=== PATIENT | male | born 1990 | race Two or more races ===

== ENCOUNTER 2017-06-14 22:21 | Emergency (ER) | payer MEDICAID ==
[~2017-06-14] VITALS: Ht 170.2 cm; Wt 58.5 kg
[2017-06-14 22:27] VITALS: BP_SYST 135
--- NOTE | 2017-06-14 22:41 | NUR ---
Patient to ER bed 4 to gown for evaluation. Side rails up. Report given to Lissy QUIROZ.
--- NOTE | 2017-06-14 22:42 | NUR ---
Patient AOx4, ambulatory, presents to ER with complaint of vomiting x3 today. Patient states he noted blood in his vomit, fever, generalized pain, and weakness. No other symptoms or complaints at this time. Patient states no changes in diet.
[2017-06-14] MEDS ORDERED: NACL 0.9% 1,000 ML IV ONE (22:43)
--- NOTE | 2017-06-14 22:43 | NUR ---
ER MD [place] at bedside for medical evaluation.
[2017-06-14] MEDS ORDERED: ONDANSETRON HCL 4 MG/2 ML VIAL IVP ONE (22:45)
[2017-06-14] MEDS ORDERED: KETOROLAC TROMETHAMINE 30 MG VIAL IVP ONE (22:45)
--- NOTE | 2017-06-14 22:50 | NUR ---
# 20 gauge angiocath placed to LFA. Use of asceptic technique. Opsite placed over site. Blood return noted. Blood for lab drawn from site. Flushed with 10 cc of normal saline. No evidence of infiltration noted. Patient tolerated well.
[2017-06-14 23:13] LABS: BASOPHILS # (AUTO) 0.1 K/uL (0.0-0.2); EOSINOPHILS # (AUTO) 0.1 K/uL (0.0-0.4); EOSINOPHILS % (AUTO) 3.6 % (0.0-4.0); HEMATOCRIT 46.1 % (36-54); HEMOGLOBIN 15.3 g/dL (14.0-18.0); LYMPHOCYTES # (AUTO) 0.7 K/uL (1.0-5.5); LYMPHOCYTES % (AUTO) 15.8 % (20.5-51.5); MEAN CORPUSCULAR HEMOGLOBIN 30 pg (27-31); MEAN CORPUSCULAR HGB CONC 33 % (32-36); MEAN CORPUSCULAR VOLUME 91 fL (79.0-98.0); MONOCYTES # (AUTO) 0.4 K/uL (0.0-1.0); MONOCYTES % (AUTO) 8.9 % (1.7-9.3); NEUTROPHILS # (AUTO) 2.9 K/uL (1.8-7.7); NEUTROPHILS % (AUTO) 69.7 % (40.0-70.0); PLATELET COUNT (AUTO) 139 K/uL (130-430); RED BLOOD CELL COUNT(AUTO) 5.09 MIL/uL (4.2-6.2); RED CELL DISTRIBUTION WIDTH 11.6 % (9.0-15.0); WHITE BLOOD COUNT (AUTO) 4.2 K/uL (4.8-10.8)
[2017-06-14 23:26] LABS: CALCIUM 9.4 mg/dL (8.4-11.0); CREATININE 0.87 mg/dL (0.55-1.30); POTASSIUM 3.7 mmol/L (3.5-5.1)
--- NOTE | 2017-06-14 23:30 | NUR ---
No adverse reactions noted after medication administration. Will continue to monitor.
[2017-06-14 23:31] LABS: ALBUMIN 4.5 g/dL (3.4-4.8); TOTAL BILIRUBIN 0.6 mg/dL (0.0-1.0)
[2017-06-15] MEDS ORDERED: ACETAMINOPHEN 325 MG TABLET ONE (00:40)
[2017-06-15] MEDS ORDERED: ACETAMINOPHEN 500 MG TABLET PO ONE (00:45)
[2017-06-15 00:55] VITALS: BP_SYST 118
--- NOTE | 2017-06-15 00:55 | NUR ---
Patient given written and verbal discharge instructions and verbalizes understanding. ER MD discussed with patient the results and treatment provided. Patient in stable condition. ID arm band removed. IV catheter removed intact and dressing applied, no active bleeding. Rx of Prednisone and Zofran given. Patient educated on pain management and to follow up with PMD. Pain Scale 2/10 tolerable to patient. Opportunity for questions provided and answered.
== END 2017-06-15 00:55 | disposition home or self-care (01) ==
LOC: SED 22:21
DX: R50.9 Fever, unspecified (principal); R11.2 Nausea with vomiting, unspecified; M79.1 Myalgia
CPT/HCPCS: 36415; 71045; 80053; 83690; 85025; 86710; 96361; 96374; 96375; 99285; J1885; J2405; J7030

== ENCOUNTER 2017-07-07 08:10 | Emergency (ER) | payer MEDICAID ==
[~2017-07-07] VITALS: Ht 172.7 cm; Wt 52.2 kg
[2017-07-07 08:19] VITALS: BP_SYST 115
[2017-07-07 08:49] VITALS: BP_SYST 115
== END 2017-07-07 08:49 | disposition home or self-care (01) ==
LOC: SED 08:10
DX: H66.91 Otitis media, unspecified, right ear (principal)
CPT/HCPCS: 99283

== ENCOUNTER 2018-06-23 22:06 | Emergency (ER) | payer BC ==
[~2018-06-23] VITALS: Ht 172.7 cm; Wt 56.7 kg
--- NOTE | 2018-06-23 22:11 | NUR ---
Placed in room 7 . Placed on student affairs vice president, blood pressure machine and pulse oximeter. To gown for exam. Side rails up. Report given to DONALD QUIROZ.
[2018-06-23 22:12] VITALS: BP_SYST 156
--- NOTE | 2018-06-23 22:16 | NUR ---
ER at bedside examining patient.
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
--- NOTE | 2018-06-23 22:26 | NUR ---
XRAY PERFORMED AT THE BEDSIDE.PT TOLERATED WELL.
[2018-06-23] MEDS ORDERED: KETOROLAC TROMETHAMINE 30 MG VIAL IM ONE (22:30)
--- NOTE | 2018-06-23 22:33 | NUR ---
PT going to radiology for xray of ribs via wheelchair. No signs of acute distress. Will cont to monitor.
--- NOTE | 2018-06-23 22:45 | NUR ---
ER at bedside reviewing results with pt.
[2018-06-23 22:52] VITALS: BP_SYST 156
--- NOTE | 2018-06-23 22:52 | NUR ---
Patient given written and verbal discharge instructions and verbalizes understanding. ER MD Dr. Estrella discussed with patient the results and treatment provided. Patient in stable condition. ID arm band removed. Rx of Motrin given. Patient educated on pain management and to follow up with PMD within 2-3 days. Pain Scale 3/10, however pt states he has OTC medication at home. Pt able to walk with steady gait, no signs of distress. Opportunity for questions provided and answered. Medication side effect fact sheet provided.
== END 2018-06-23 22:52 | disposition home or self-care (01) ==
LOC: SED 22:06
DX: S20.212A Contusion of left front wall of thorax, initial encounter (principal); Z90.89 Acquired absence of other organs; W03.XXXA Other fall on same level due to collision with another person, initial encounter; Y93.71 Activity, boxing; Y92.89 Other specified places as the place of occurrence of the external cause; Y99.8 Other external cause status
CPT/HCPCS: 71045; 71100; 93005; 96372; 99283; J1885

== ENCOUNTER 2020-04-06 11:54 | Emergency (ER) | payer BC, OTHER ==
[~2020-04-06] VITALS: Ht 157.5 cm; Wt 61.2 kg
[2020-04-06 11:58] VITALS: BP_SYST 140
[2020-04-06 13:38] VITALS: BP_SYST 140
== END 2020-04-06 13:30 | disposition home or self-care (01) ==
LOC: SED 11:54
DX: S00.83XA Contusion of other part of head, initial encounter (principal); W22.8XXA Striking against or struck by other objects, initial encounter; Y93.89 Activity, other specified; Y92.89 Other specified places as the place of occurrence of the external cause; Y99.8 Other external cause status
CPT/HCPCS: 70450-TC; 76376; 99284

== ENCOUNTER 2020-11-14 20:27 | Emergency (ER) | payer OTHER ==
[~2020-11-14] VITALS: Ht 172.7 cm; Wt 56.7 kg
[2020-11-14 21:02] VITALS: BP_SYST 121
[2020-11-14] MEDS ORDERED: NAPR-690 PO (22:48)
[2020-11-14 22:52] VITALS: BP_SYST 121
== END 2020-11-14 22:52 | disposition home or self-care (01) ==
LOC: SED 20:27
DX: S43.402A Unspecified sprain of left shoulder joint, initial encounter (principal); S23.41XA Sprain of ribs, initial encounter; X50.9XXA Other and unspecified overexertion or strenuous movements or postures, initial encounter; Y93.89 Activity, other specified; Y92.89 Other specified places as the place of occurrence of the external cause; Y99.8 Other external cause status
CPT/HCPCS: 93005; 99283

== ENCOUNTER 2022-06-10 17:46 | Emergency (ER) | payer OTHER ==
[~2022-06-10] VITALS: Ht 170.2 cm; Wt 58.1 kg
[~2022-06-10 17:46] MED LIST: NAPR-690 PO
[2022-06-10 17:50] VITALS: BP_SYST 133
--- NOTE | 2022-06-10 17:57 | NUR ---
Patient to ER bed 04 to gown for evaluation. Side rails up. Report RECIEVED FROM GABRIELLA GILLIS
[2022-06-10] MEDS ORDERED: NACL 0.9% 1,000 ML IV ONE (18:00)
[2022-06-10] MEDS ORDERED: ONDANSETRON HCL 4 MG/2 ML VIAL IVP ONE (18:00)
[2022-06-10] MEDS ORDERED: MORPHINE 4 MG INJ. 4 MG/ML VIAL IVP ONE (18:00)
--- NOTE | 2022-06-10 18:00 | NUR ---
ER at bedside examining patient.
--- NOTE | 2022-06-10 18:02 | NUR ---
PATIENT BROUGHT IN COMPLAING OF LEFT SIDED HEADACHE SINCE YESTERDAY WITH NUMBNESS TO THE LEFT SIDE OF FACE. PATIENT TOOK TYLENOL AND MOTRIN AT HOME WITH MINIAL RELIEF. DENIES ANY FEVER, WEAKNESS, VISION CHANGES, DIZZINESS. 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
--- NOTE | 2022-06-10 18:20 | NUR ---
# 18 gauge angiocath placed to LAC. Use of asceptic technique. Opsite placed over site. Blood return noted. Blood for lab drawn from site. Flushed with 10 cc of normal saline. No evidence of infiltration noted. Patient tolerated well.
[2022-06-10 18:37] LABS: BASOPHILS # (AUTO) 0.1 K/uL (0.0-0.2); BASOPHILS % (AUTO) 1.1 % (0.0-2.0); EOSINOPHILS # (AUTO) 0.3 K/uL (0.0-0.4); EOSINOPHILS % (AUTO) 4.3 % (0.0-4.0); HEMATOCRIT 45.8 % (36-54); HEMOGLOBIN 16.1 g/dL (14.0-18.0); LYMPHOCYTES # (AUTO) 2.1 K/uL (1.0-5.5); LYMPHOCYTES % (AUTO) 31.9 % (20.5-51.5); MEAN CORPUSCULAR HEMOGLOBIN 30 pg (27-31); MEAN CORPUSCULAR HGB CONC 35 % (32-36); MEAN CORPUSCULAR VOLUME 86 fL (79.0-98.0); MONOCYTES # (AUTO) 0.4 K/uL (0.0-1.0); MONOCYTES % (AUTO) 6.8 % (1.7-9.3); NEUTROPHILS # (AUTO) 3.7 K/uL (1.8-7.7); NEUTROPHILS % (AUTO) 55.9 % (40.0-70.0); PLATELET COUNT (AUTO) 164 K/uL (130-430); RED CELL DISTRIBUTION WIDTH 13.6 % (9.0-15.0); WHITE BLOOD COUNT (AUTO) 6.6 K/uL (4.8-10.8)
[2022-06-10 19:17] LABS: CALCIUM 9.3 mg/dL (8.4-11.0); CREATININE 0.72 mg/dL (0.55-1.30)
[2022-06-10 19:19] LABS: ALBUMIN 4.2 g/dL (3.4-4.8); TOTAL BILIRUBIN 0.4 mg/dL (0.0-1.0)
--- NOTE | 2022-06-10 19:25 | NUR ---
REPORT GIVEN TO GABRIELLA RODRIGES.
[2022-06-10] MEDS ORDERED: HYDR-3917 PO (19:27)
[2022-06-10] MEDS ORDERED: ONDA-8 TL (19:27)
[2022-06-10] MEDS ORDERED: IBUP-1969 PO (19:28)
--- NOTE | 2022-06-10 19:34 | NUR ---
MD AT BEDSIDE DISCUSSING POC
[2022-06-10 21:02] VITALS: BP_SYST 124
--- NOTE | 2022-06-10 21:06 | NUR ---
Patient given written and verbal discharge instructions and verbalizes understanding. ER MD discussed with patient the results and treatment provided. Patient in stable condition. ID arm band removed. IV catheter removed intact and dressing applied, no active bleeding. Rx of Ibuprofen given. Patient educated on pain management and to follow up with PMD. Pain Scale . Opportunity for questions provided and answered. Medication side effect fact sheet provided.
== END 2022-06-10 20:00 | disposition home or self-care (01) ==
LOC: SED 17:46
DX: R51.9 Headache, unspecified (principal); R20.2 Paresthesia of skin; Z79.899 Other long term (current) drug therapy
CPT/HCPCS: 99285; 96374; 70450; 96361; 96375; 80053; 85025; 86886; 86900; 86901; 36415; 76376; J2405; J2270; J7030